=== PATIENT | male | born 1960 | race African-American/Black ===

== ENCOUNTER 2021-06-23 15:59 | Emergency (ER) | payer MEDICAID, OTHER ==
[~2021-06-23] VITALS: Ht 175.3 cm; Wt 86.2 kg
[2021-06-23 16:03] VITALS: BP 107/75
== END 2021-06-24 04:18 | disposition left against medical advice (07) ==
LOC: ER 16:04
DX: R51.9 Headache, unspecified (principal); R22.0 Localized swelling, mass and lump, head; Z53.21 Procedure and treatment not carried out due to patient leaving prior to being seen by health care provider